=== PATIENT | male | born 2000 | race Two or more races ===

== ENCOUNTER 2019-04-28 23:50 | Emergency (ER) | payer OTHER ==
[2019-04-29] MEDS ORDERED: HALOPERIDOL LACTATE INJ 5 MG/ML VIAL ONE (00:15)
[2019-04-29] MEDS ORDERED: HALOPERIDOL LACTATE INJ 5 MG/ML VIAL IM ONE (00:30)
[2019-04-29] MEDS ORDERED: OLANZAPINE 10 MG VIAL IM ONE ×2 (02:00→02:15)
== END 2019-04-29 10:48 | disposition home or self-care (01) ==
DX: F19.10 Other psychoactive substance abuse, uncomplicated (principal); F24 Shared psychotic disorder; R41.82 Altered mental status, unspecified
CPT/HCPCS: 36415; 70450; 80048; 80076; 80305; 80307; 80329; 81001; 85025; 87086; 96372 ×2; 99284; G0480; J1630; J3490

== ENCOUNTER 2019-07-12 16:23 | Emergency (ER) | payer OTHER ==
[~2019-07-12] VITALS: Ht 193 cm; Wt 90.7 kg
[2019-07-12 17:04] VITALS: BP 131/77
--- NOTE | 2019-07-12 17:18 | NUR ---
PT CAME INTO THE ED C/O ABDOMINAL PAIN 05/10 X 4 DAYS. +HEADACHE, -NVD. PT AAOX4, VSS, BREATHING EVEN AND UNLABORED TO ROOM AIR. PT CONNECTED TO THE MONITOR
[2019-07-12 17:30] LABS: BASOPHILS # (AUTO) 0.1 /CMM (0.0-0.2); EOSINOPHILS % (AUTO) 5.5 % (0.0-6.0); HEMATOCRIT 46 % (39-51); HEMOGLOBIN 15.1 g/dL (13.5-17.5); LYMPHOCYTES # (AUTO) 1.7 /CMM (0.8-4.8); LYMPHOCYTES % (AUTO) 20.2 % (20.0-44.0); MEAN CORPUSCULAR HGB CONC 33 g/dl (31.0-36.0); MEAN CORPUSCULAR VOLUME 93 fL (80-96); MONOCYTES # (AUTO) 0.9 /CMM (0.1-1.30); MONOCYTES % (AUTO) 10.1 % (2.0-12.0); NEUTROPHILS # (AUTO) 5.3 /CMM (1.8-8.9); NEUTROPHILS % (AUTO) 63.2 % (43.0-81.0); PLATELET COUNT (AUTO) 252 /CMM (150-450); RED BLOOD CELL COUNT(AUTO) 4.94 MIL/uL (4.5-6.0); WHITE BLOOD COUNT (AUTO) 8.4 K/uL (4.3-11.0)
[2019-07-12 18:00] LABS: CALCIUM, SERUM 9.4 mg/dL (8.5-10.1); CREATININE 1.1 mg/dL (0.6-1.3); POTASSIUM 4.7 mmol/L (3.5-5.1)
[2019-07-12 18:07] LABS: ALBUMIN 3.9 g/dL (3.4-5.0); BILIRUBIN,DIRECT 0.1 mg/dL (0.0-0.2); BILIRUBIN,TOTAL 0.3 mg/dL (0.2-1.0); TOTAL PROTEIN, SERUM 7.1 g/dL (6.4-8.2)
[2019-07-12 18:42] LABS: APPEARANCE,URINE Clear (CLEAR); BILIRUBIN,URINE Negative (NEGATIVE); BLOOD, URINE Negative Ery/uL (NEGATIVE); COLOR,URINE Yellow (YELLOW); KETONES,URINE Negative (NEGATIVE); LEUKOCYTE ESTERASE ,URINE Negative (NEGATIVE); NITRITE, URINE Negative (NEGATIVE); PH,URINE 7.5 (5.0-8.0); PROTEIN,URINE Negative (NEGATIVE); UGLUCOSE Negative (NEGATIVE); UROBILINOGEN,URINE 0.2 EU/dL (0.2)
== END 2019-07-12 18:53 | disposition home or self-care (01) ==
LOC: ER 16:29
DX: R10.84 Generalized abdominal pain (principal); K59.00 Constipation, unspecified; F28 Other psychotic disorder not due to a substance or known physiological condition; F32.9 Major depressive disorder, single episode, unspecified; F20.9 Schizophrenia, unspecified; J45.909 Unspecified asthma, uncomplicated
CPT/HCPCS: 36415; 80048-TC; 80076-TC; 81000-TC; 83690-TC; 85025-TC